=== PATIENT | male | born 1960 | race Caucasian/White ===

== ENCOUNTER → 2019-07-04 | Outpatient (CLI) | payer OTHER ==
[~2019-07-04] MED LIST: ATENOLOL 100MG100 MG PO; MIRALAX17 GM PO; NEXIUM40 MG PO; RESTORIL30 MG PO; XANAX; XANAX 0.5 MG0.5 MG PO
== END ==
LOC: M.PC 07:55
DX: M47.816 Spondylosis without myelopathy or radiculopathy, lumbar region (principal); M12.88 Other specific arthropathies, not elsewhere classified, other specified site; M41.86 Other forms of scoliosis, lumbar region; M51.36 Other intervertebral disc degeneration, lumbar region

== ENCOUNTER → 2019-07-27 | Outpatient (CLI) | payer OTHER ==
[~2019-07-27] MED LIST changes: +ATIVAN0.5 M1 PO
== END ==
LOC: M.ULTRA 13:49
DX: N28.1 Cyst of kidney, acquired (principal)

== ENCOUNTER → 2019-07-27 | Outpatient (CLI) | payer OTHER | END | disposition home or self-care (01) | LOC: M.PC 07-25 09:00 | DX: M54.5 Low back pain (principal); M47.896 Other spondylosis, lumbar region; M51.36 Other intervertebral disc degeneration, lumbar region; M53.3 Sacrococcygeal disorders, not elsewhere classified; G58.8 Other specified mononeuropathies; M41.86 Other forms of scoliosis, lumbar region; Z98.890 Other specified postprocedural states; Z79.899 Other long term (current) drug therapy; Z91.041 Radiographic dye allergy status; Z88.8 Allergy status to other drugs, medicaments and biological substances ==

== ENCOUNTER → 2019-09-07 | Outpatient (CLI) | payer OTHER, BC ==
[~2019-09-07] MED LIST changes: +TOPROL XL50 MG PO
== END ==
LOC: M.PC 10:10
DX: M47.816 Spondylosis without myelopathy or radiculopathy, lumbar region (principal); M51.36 Other intervertebral disc degeneration, lumbar region; M41.86 Other forms of scoliosis, lumbar region; M12.88 Other specific arthropathies, not elsewhere classified, other specified site

== ENCOUNTER → 2020-03-14 | Outpatient (CLI) | payer OTHER, BC | END | disposition home or self-care (01) | LOC: M.PC 05:30 | PROVIDERS: ATTEND Physical Medicine & Rehabilitation | DX: M54.5 Low back pain (principal); M47.816 Spondylosis without myelopathy or radiculopathy, lumbar region; M51.36 Other intervertebral disc degeneration, lumbar region; Z79.899 Other long term (current) drug therapy; Z98.890 Other specified postprocedural states ==